=== PATIENT | female | born 1985 | race American Indian/Alaskan Native ===

== ENCOUNTER 2019-04-15 08:07 | Emergency (ER) | payer MEDICAID ==
[2019-04-15 08:17] VITALS: BP 124/82
--- NOTE | 2019-04-15 08:28 | Emergency Department Report ---
ED Dysuria HPI - HPI Chief Complaint: Abdominal Pain Stated Complaint: UTI/POSS /INFECTION Time Seen by Provider: 04/15/19 08:27 Symptoms: Dysuria: No, Frequency: No, Suprapubic Pain: No, Flank Pain: No, Fever: No, Hematuria: No, Abdominal Pain: No, Previous UTI's: No Other History: Patient is a 33-year-old female comes to the ER complaining of irregular menses. She has been her OB and a second doctor for second opinion but they're not able to give an answer so she comes to the ER. She has no pain, no dysuria, no vaginal bleeding present and no vaginal discharge. She was concerned that she is . ED Review of Systems ROS: Stated complaint: UTI/POSS /INFECTION Other details as noted in HPI Comment: All other systems reviewed and negative ED Past Medical Hx - Past Medical History Previous Medical History?: Yes Hx Hypertension: Yes - Surgical History Past Surgical History?: Yes Additional Surgical History: C section x2 - Social History Smoking Status: Current Every Day Smoker Substance Use Type: None - Medications Home Medications: Home Medications Medication Instructions Recorded Confirmed Last Taken Type Benzonatate [Tessalon Perle] 100 mg PO TID PRN #20 capsule 07/12/18 Unknown Rx Fluticasone [Flonase] 1 spray NS QDAY #1 bottle 07/12/18 Unknown Rx Guaifenesin/Dm/Pseudoephedrine 1 each PO BID #14 tablet 07/12/18 Unknown Rx [Desgen Dm Tablet] Dysuria Exam - Exam General: Vital signs noted. No distress. Alert and acting appropriately. Exam: Yes Moist Mucous Membranes, No CVA Tenderness, No Abdominal Tenderness, No Rigidity or Guarding ED Course Vital Signs 04/15/19 08:11 Temperature 98.2 F Pulse Rate 79 Respiratory 16 Rate Blood Pressure 124/82 O2 Sat by Pulse 100 Oximetry ED Medical Decision Making - Medical Decision Making Lab Results 04/15/19 Range/Units 09:52 Urine Color Jos[place] (Yellow) Urine Turbidity Slightly-cloudy (Clear) Urine pH 6.0 (5.0-7.0) Ur Specific [place] 1.019 (1.003-1.030) Urine Protein <15 mg/dl (Negative) mg/dL Urine Glucose (UA) Neg (Negative) mg/dL Urine Ketones Neg (Negative) mg/dL Urine Blood Neg (Negative) Urine Nitrite Neg (Negative) Urine Bilirubin Neg (Negative) Urine Urobilinogen < 2.0 (<2.0) mg/dL Ur Leukocyte Esterase Neg (Negative) Urine WBC (Auto) < 1.0 (0.0-6.0) /HPF Urine RBC (Auto) 4.0 (0.0-6.0) /HPF U Epithel Cells (Auto) 1.0 (0-13.0) /HPF Urine Mucus 2+ /HPF Urine HCG, Qual Negative (Negative) Vital Signs 04/15/19 08:11 Temperature 98.2 F Pulse Rate 79 Respiratory 16 Rate Blood Pressure 124/82 O2 Sat by Pulse 100 Oximetry Discussed with the patient the results of her urine. I also discussed with her irregular menses. I explained to her that she would need to see an [employer] to get her estrogen and progesterone checked to determine if she is in a early perimenopausal state. Patient states she's been to 2 other doctors and they can't give her answers. I told her to be sure and asked the right questions including if they checked her serum estrogen and progesterone. Patient is in no pain. She denies vaginal bleeding or discharge. She has just been concerned that she is with her irregular menses. Patient did not do a home test. Her last menstrual cycle she reports was about 2 weeks ago but again emphasizes that it's been irregular and she has had some spotting. She is in no pain. Her vital signs are stable and normal and she is ambulatory and nontoxic. - Differential Diagnosis ro uti/preg Critical care attestation.: If time is entered above; I have spent that time in minutes in the direct care of this critically ill patient, excluding procedure time. ED Disposition Clinical Impression: Negative test, Irregular menses Disposition: DC-01 TO HOME OR SELFCARE Is pt being admited?: No Does the pt Need Aspirin: No Condition: Stable Referrals: PRIMARY CARE, [Primary Care Provider] - 3-5 Days MATTHEW LUKE MD [Staff Physician] - 3-5 Days Time of Disposition: 10:11
[2019-04-15 10:04] LABS: Bilirubin,Urine NEG (Negative); Blood,Urine NEG (Negative); Color,Urine Amber (Yellow); Mucus,Urine 2+ /HPF; Protein,Urine <15 mg/dL mg/dL (Negative); Urobilinogen,Urine < 2.0 mg/dL (<2.0); WBC,Urine < 1.0 /HPF (0.0-6.0)
[2019-04-15 10:06] LABS: HCG Qualitative,Urine Negative (Negative)
== END 2019-04-15 10:15 | disposition home or self-care (01) ==
LOC: ED 08:07
DX: N92.6 Irregular menstruation, unspecified (principal); I10 Essential (primary) hypertension; F17.200 Nicotine dependence, unspecified, uncomplicated
CPT/HCPCS: 81001; 81025

== ENCOUNTER 2020-05-23 03:40 | Emergency (ER) | payer MEDICAID ==
[2020-05-23 03:56] VITALS: BP 138/95
[2020-05-23] MEDS ORDERED: IBUPROFEN 800 MG TAB PO ONE (06:24)
[2020-05-23] MEDS ORDERED: diphenhydrAMINE 25 MG CAP PO ONE (06:24)
--- NOTE | 2020-05-23 06:29 | Emergency Department Report ---
[facility] Chief Complaint: Eye Problems Stated Complaint: ALLERGIC REACTION Time Seen by Provider: 05/23/20 06:24 Side: Left Severity: moderate Symptoms: Yes Eye Itching, Yes Eye Redness, Yes Eye Pain, Yes Mucous Drainage, No Blurred Vision, No Preceding URI, No H/O Allergic Rhinitis, No Contact Lens Use, No Trauma, No Fever, No Headache Other History: Patient states left eye pain redness irritation and clear drainage after rubbing it tonight with finger. There is no fever or chills. No decreased or blurred vision. No foreign body sensation noted. Visual acuity is 20/30 bilateral ED Review of Systems ROS: Stated complaint: ALLERGIC REACTION Other details as noted in HPI Constitutional: denies: chills, fever Eyes: eye pain, eye discharge. denies: vision change ENT: denies: ear pain, throat pain, congestion Respiratory: denies: cough, shortness of breath, wheezing Cardiovascular: denies: chest pain, palpitations Endocrine: no symptoms reported Gastrointestinal: denies: abdominal pain, nausea, diarrhea Genitourinary: as per HPI Musculoskeletal: denies: back pain, joint swelling, arthralgia Skin: denies: rash, lesions Neurological: denies: headache, weakness, paresthesias Psychiatric: denies: anxiety, depression Hematological/Lymphatic: denies: easy bleeding, easy bruising ED Past Medical Hx - Past Medical History Hx Hypertension: Yes Hx Psychiatric Treatment: Yes (Anxiety, depression, bipolar) - Surgical History Additional Surgical History: C section x2 - Social History Smoking Status: Current Every Day Smoker Substance Use Type: Alcohol, Marijuana - Medications Home Medications: Home Medications Medication Instructions Recorded Confirmed Last Taken Type Benzonatate [Tessalon Perle] 100 mg PO TID PRN #20 capsule 07/12/18 Unknown Rx Fluticasone [Flonase] 1 spray NS QDAY #1 bottle 07/12/18 Unknown Rx Guaifenesin/Dm/Pseudoephedrine 1 each PO BID #14 tablet 07/12/18 Unknown Rx [Desgen Dm Tablet] Ibuprofen [Motrin] 800 mg PO Q8HR PRN #24 tablet 03/18/20 Unknown Rx Ondansetron [Zofran Odt] 4 mg PO Q6HR PRN #15 tab.rapdis 03/18/20 Unknown Rx metroNIDAZOLE [Flagyl] 500 mg PO Q12HR #14 tab 03/18/20 Unknown Rx Ibuprofen [Motrin 800 MG tab] 800 mg PO Q8HR PRN #30 tablet 05/23/20 Unknown Rx Ketotifen Fumarate [Zaditor] 1 drop OP BID 3 Days #5 ml 05/23/20 Unknown Rx [facility] Exam - Exam General: Vital signs noted. No distress. Alert and acting appropriately. Eye Exam: Left Mucous Discharge, Both EOMI, Neither Injection, Neither Chemosis, Neither Abnormal Pupil, Neither Eye Foreign Body, Neither Lid Foreign Body, Neither Purulent Discharge, Neither Corneal Edema, Neither Photophobia HEENT: No Nasal Congestion, No Pharyngeal Erythema Remainder of HEENT: Normal Lungs: Yes Clear Lung Sounds, Yes Good Air Exchange, No Wheezes, No Stridor, No Cough, No Nasal Flaring, No Retractions, No Use of Accessory Muscles ED Course Vital Signs 05/23/20 03:52 Temperature 98.6 F Pulse Rate 76 Respiratory 16 Rate Blood Pressure 138/95 O2 Sat by Pulse 98 Oximetry ED Medical Decision Making - Medical Decision Making visual acuity 20/30 bilat, there is mild conjunctival erythema, clear discharge, this is likely conjunctivitis , plan, Zaditor, ibuprofen, follow up with ophthalmology in 1-2 days, return to ed if symptoms worsen , pt verbalized ag reement and understanding of discharge plan. Critical care attestation.: If time is entered above; I have spent that time in minutes in the direct care of this critically ill patient, excluding procedure time. ED Disposition Clinical Impression: Conjunctivitis Qualifiers: Conjunctivitis type: acute Acute conjunctivitis type: unspecified Laterality: left Qualified Code(s): H10.32 - Unspecified acute conjunctivitis, left eye Disposition: DC- TO HOME OR SELFCARE Is pt being admited?: No Does the pt Need Aspirin: No Condition: Stable Instructions: Conjunctivitis (ED) Prescriptions: Ibuprofen [Motrin 800 MG tab] 800 mg PO Q8HR PRN #30 tablet PRN Reason: pain Ketotifen Fumarate [Zaditor] 1 drop OP BID 3 Days #5 ml Referrals: REKHA STEVENS MD [Staff Physician] - 2-3 Days Forms: Work/School Release Form(ED) Time of Disposition: 06:34
== END 2020-05-23 07:10 | disposition home or self-care (01) ==
LOC: ED 03:40
DX: H10.9 Unspecified conjunctivitis (principal); F31.9 Bipolar disorder, unspecified; F41.9 Anxiety disorder, unspecified; I10 Essential (primary) hypertension; F17.200 Nicotine dependence, unspecified, uncomplicated; F12.90 Cannabis use, unspecified, uncomplicated; Z79.899 Other long term (current) drug therapy; Z98.890 Other specified postprocedural states
CPT/HCPCS: 99282

== ENCOUNTER 2020-06-07 09:46 | Emergency (ER) | payer MEDICAID ==
[2020-06-07 09:58] VITALS: BP 170/97
== END 2020-06-07 10:50 | disposition left against medical advice (07) ==
LOC: ED 09:46
DX: M54.2 Cervicalgia (principal); R51.9 Headache, unspecified; Z53.21 Procedure and treatment not carried out due to patient leaving prior to being seen by health care provider

== ENCOUNTER 2022-03-17 15:30 | Emergency (ER) | payer SELFPAY ==
[2022-03-17 17:48] VITALS: BP 175/112
[2022-03-17 21:15] LABS: Mucus,Urine FEW /HPF; RBC,Urine < 1.0 /HPF (0.0-6.0)
[2022-03-17 21:34] LABS: Bilirubin,Urine Negative (Negative); Blood,Urine Negative (Negative); Color,Urine Yellow (Yellow); Urobilinogen,Urine < 2.0 mg/dL (<2.0)
--- NOTE | 2022-03-18 10:37 | Electrocardiograph Report ---
[facility] Test Date: 2022-03-17 Test Time: 17:50:06 Pat Name: REINIER BRINK Department: Room: Gender: F Occupational Psychologist: RENEE : 1985 Requested By: KALINA BOWERS Order Number: [id number] Reading MD: Jayme Nguyễn Measurements Intervals [place] Rate: 59 P: 36 DE: 192 QRS: 53 QRSD: 77 T: 38 QT: 389 QTc: 385 Interpretive Statements Sinus rhythm No previous ECG available for comparison Electronically Signed On 03-18-2022 10:36:44 EDT by Jayme Nguyễn
== END 2022-03-18 02:15 | disposition left against medical advice (07) ==
LOC: ED 15:30
DX: R42 Dizziness and giddiness (principal); Z53.21 Procedure and treatment not carried out due to patient leaving prior to being seen by health care provider
CPT/HCPCS: 81001; 93005